=== PATIENT | male | born 1975 | race Caucasian/White ===

== ENCOUNTER 2018-03-20 09:37 | Outpatient (CLI) | payer OTHER, SELFPAY ==
[2018-03-20 11:27] LABS: Abs Immature Grans 0.02 k/cumm (0.0-0.09); Absolute Basophil Count 0.02 k/cumm (0.0-0.2); Absolute Eosinophil Count 0.24 k/cumm (0.0-0.7); Absolute Monocyte Count 0.65 k/cumm (0.11-0.7); Absolute Neutrophil Count 5.84 k/cumm (1.2-6.7); Basophils % 0.2; Eosinophils % 2.8; HCT 45.9 % (40.0-50.0); HGB 14.5 g/dL (13.5-17.5); Immature Grans % 0.2; Lymphocytes % 20.1; Mean Corp. HGB Concentration 31.6 g/dL (32.0-36.0); Mean Corpuscular Hemoglobin 29.3 pg (27.0-33.0); Mean Corpuscular Volume 92.7 fL (80-95); Mean Platelet Volume 12.1 fL (8.0-11.0); Monocytes % 7.7; Platelet Count 243 x1000/uL (130-400); RBC 4.95 m/cumm (4.50-6.00); RBC Distribution Width 12.9 % (11.8-14.1); White Blood Cell Count 8.47 k/cumm (4.4-10.8)
[2018-03-20 11:46] LABS: ALT 23 U/L (12-78); AST 13 U/L (15-37); Alkaline Phosphatase 53 U/L (46-116); BUN 12 mg/dL (7-18); Bilirubin, Total 0.3 mg/dL (0.2-1.0); CREATININE 0.94 mg/dL (0.70-1.30); Calcium 9.2 mg/dL (8.5-10.1); Chloride 101 mmol/L (98-107); Glucose 93 mg/dL (70-100); Potassium 4.8 mmol/L (3.5-5.1); Sodium 139 mmol/L (136-145); Total Protein 7.9 g/dL (6.4-8.2)
[2018-03-20 13:02] LABS: TSH 1.96 uIU/mL (0.358-3.74)
[2018-03-21 09:31] LABS: Thyroglobulin Antibody 27 U/mL (<61); Thyroperoxidase Antibody <28 U/mL (<61)
[2018-03-22 17:31] LABS: Testosterone, Free 11.4 ng/dL (4.46-17.1); Testosterone, Total 356 ng/dL (240-950)
== END 2018-03-20 09:57 ==
LOC: LBO 09:38 → LOS 10:17
PROVIDERS: PCP Nurse Practitioner Family; Visit Provider Nurse Practitioner Family
DX: E03.9 Hypothyroidism, unspecified (principal); R79.89 Other specified abnormal findings of blood chemistry
CPT/HCPCS: 36415; 80053; 80076; 84153; 84402; 84403; 85027; 86376; 84154; 84439; 84443; 85025

== ENCOUNTER 2018-08-21 02:02 | Outpatient (CLI) | payer OTHER, SELFPAY ==
[2018-08-21 10:39] LABS: HCT 49.2 % (40.0-50.0); HGB 15.8 g/dL (13.5-17.5); Mean Corp. HGB Concentration 32.1 g/dL (32.0-36.0); Mean Corpuscular Hemoglobin 29.6 pg (27.0-33.0); Mean Corpuscular Volume 92.1 fL (80-95); Mean Platelet Volume 12.2 fL (8.0-11.0); Platelet Count 232 x1000/uL (130-400); RBC 5.34 m/cumm (4.50-6.00); RBC Distribution Width 13.1 % (11.8-14.1); White Blood Cell Count 9.61 k/cumm (4.4-10.8)
[2018-08-21 11:29] LABS: ALT 23 U/L (12-78); AST 19 U/L (15-37); Albumin 3.6 g/dL (3.4-5.0); Alkaline Phosphatase 45 U/L (46-116); Anion Gap 9.6 mmol/L (3-11); BUN 19 mg/dL (7-18); Bilirubin, Total 0.6 mg/dL (0.2-1.0); CO2 26.4 mmol/L (21.0-32.0); CREATININE 1.09 mg/dL (0.70-1.30); Calcium 8.6 mg/dL (8.5-10.1); Chloride 103 mmol/L (98-107); Cholesterol 157 mg/dL (50-200); Folate 18.7 ng/mL (8.6-20.0); Glucose 96 mg/dL (70-100); HDL Cholesterol 35 mg/dL (40-60); LDL CHOLESTEROL 103 mg/dL (<100); Potassium 4.3 mmol/L (3.5-5.1); Sodium 139 mmol/L (136-145); TSH 2.57 uIU/mL (0.358-3.74); Total Protein 7.5 g/dL (6.4-8.2); Triglyceride 93 mg/dL (30-150); Vitamin B12 277 pg/mL (193-986)
[2018-08-21 11:48] LABS: FREE T4 0.91 ng/dL (0.76-1.46)
[2018-08-22 09:47] LABS: FSH <0.3 mIU/ml (1.4-18.1); LH <0.1 mIU/ml (2-9)
[2018-08-23 09:35] LABS: Homocysteine 11.5 umol/L (4.5-12.4)
== END 2018-08-21 02:22 ==
PROVIDERS: PCP Nurse Practitioner Family; Visit Provider Nurse Practitioner Family
DX: E03.9 Hypothyroidism, unspecified (principal); E29.1 Testicular hypofunction; Z13.220 Encounter for screening for lipoid disorders
CPT/HCPCS: 36415; 80053; 80061; 83090; 83721; 85027; 82607; 82746; 83001; 83002; 84439; 84443

== ENCOUNTER 2018-08-28 10:18 | Outpatient (CLI) | payer OTHER, SELFPAY ==
[2018-08-31 13:34] LABS: Testosterone, Free 15.1 ng/dL (4.46-17.1); Testosterone, Total 445 ng/dL (240-950)
== END 2018-08-28 10:38 ==
PROVIDERS: PCP Nurse Practitioner Family; Visit Provider Nurse Practitioner Family
DX: E55.9 Vitamin D deficiency, unspecified (principal); E29.1 Testicular hypofunction
CPT/HCPCS: 36415; 82306; 84402; 84403

== ENCOUNTER 2020-04-19 22:27 | Emergency (ER) | payer OTHER, SELFPAY ==
[2020-04-19 22:33] VITALS: BP 145/86; PULSE 88; RESP 16; TEMP 36.5; O2SAT 96
--- NOTE | 2020-04-19 22:45 | DI.RAD_ITS ---
EXAM: XR PORTABLE CHEST AP CLINICAL HISTORY: cough, wheeze TECHNIQUE: 2D digital imaging was performed. COMPARISON: No exams were available for comparison FINDINGS: MEDIASTINUM: Normal. HEART: Normal. PULMONARY VASCULATURE: Normal. LUNGS: No focal consolidating infiltrate. Minimal atelectasis in the lung bases. PLEURAL SPACE: No pleural effusion or pneumothorax. BONE:Within normal limits for the patient's age. OTHER FINDINGS:Normal. IMPRESSION: No acute pulmonary findings. DATA REPOSITORY: RADIATION DOSE DELIVERED:
--- NOTE | 2020-04-19 22:48 | ED.GENADUL_ITS ---
Discharge Plan Disposition Patient Disposition: HOME Condition: Improving Discharge Details Clinical Impression: Exacerbation of reactive airway disease Primary Care Provider: Joellen Wong ED Provider: Júnior Allen Home Meds and New Rx's Prescriptions: New prednisone 50 mg tablet 50 mg PO DAILY 5 Days Qty: 5 RF: 0 budesonide-formoterol [Symbicort] 80-4.5 mcg/actuation HFA aerosol inhaler 2 puff inhalation BID Qty: 10.2 RF: 0 Continued (DME) BD Regular Bevel [place] 21 gauge x 1 1/2 needle 1 ea Miscellaneous as directed Qty: 100 RF: 4 albuterol sulfate [ProAir HFA] 90 mcg/actuation HFA aerosol inhaler 1 - 2 puff Inhalation Q6H PRN PRN (Reason: shortness of breath or wheezing) Qty: 8.5 RF: 4 propranolol 40 mg tablet 40 mg PO ONCE PRN (Reason: situational anxiety) Qty: 30 RF: 0 triamcinolone acetonide 0.5 % ointment 1 applic Topical BID PRN (Reason: eczema) Qty: 80 RF: 4 testosterone cypionate 200 mg/mL oil 200 mg IM Q2Wks Qty: 6 RF: 0 Discharge Instructions Instructions: Reactive Airways Disease (ED) Additional Instructions: Return if you have a fever, cough, worsening shortness of breath or any other acute concerns. Please restart your Symbicort. Take prednisone as prescribed. Follow-up with regular doctor if not improving in 5 days time. Medical Decision Making <Júnior Allen MD - Last Filed: 04/19/20 22:53> 44-year-old male with a history of reactive airway disease. In early spring of this year he stopped taking his Symbicort. 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 This evening went out to check his game cameras and became abruptly wheezy and shortness of breath. He took albuterol x4 at home with some improvement, and presented to the ER for evaluation. He is afebrile and speaking in full sentences no acute distress. Oxygenating 96% on room air. Screening portable chest x-ray obtained. Patient given p.o. prednisone and DuoNeb updraft x2. Will place on a burst of prednisone. I will refill his Symbicort inhaler. <Viktor Alexandre MD - Last Filed: 04/19/20 23:26> Pt feels much better after nebs and is speaking in full sentences with clear lungs. Xray read as atelectasis vs infiltrate. Pt states this feels like his prior asthma exacerbation and denies fevers. Discussed with pt low likelihood of pneumonia based on symptoms and after discussion he would like to hold on antibiotics. He understands importance of pcp f/u if not improving within 5 days and return precautions given Imaging Data Radiologic Study: Attestation: I personally reviewed and interpreted this imaging study as follows: Imaging: X-Ray Radiologist's impression: IMPRESSION: Mild interstitial prominence. Mild left basilar atelectasis or infiltrate HPI <Júnior Allen MD - Last Filed: 04/19/20 22:53> General Mode of arrival: ambulatory . Date/Time Provider Initiated Documentation: 04/19/20 22:28 . Limitations to Documentation: no limitations . Information obtained by: patient . History of Present Illness 44 year old M presents to the emergency department with the chief complaint of Wheezing and asthma after walking in the [place] this evening, described as moderate and similar to prior episodes, Quality is described as dull, and is localized to the chest. Patient reports no radiation. Patient started experiencing this minute(s) and it has been constant. No relieving factors improve symptom(s), Other factors that worsen symptoms (Albuterol) . Patient notes denies chest pain, cough and fever/chills. Patient did receive the following treatments prior to arrival, other (Albuterol) Related Data Home Medications Medication Instructions Recorded Confirmed albuterol sulfate 90 mcg/actuation 1 - 2 puff INHALATION Q6H PRN PRN 05/08/19 04/19/20 aerosol inhaler #8.5 gm needle (disp) 21 G 21 gauge x 1 #100 each 05/08/19 12/04/19 1/2 propranolol 40 mg tablet 40 mg PO ONCE PRN #30 tab 07/01/19 04/19/20 triamcinolone acetonide 0.5 % 1 applic TOPICAL BID PRN #80 gm 07/01/19 04/19/20 topical ointment testosterone cypionate 200 mg/mL 200 mg IM Q2Wks #6 vial 03/25/20 04/19/20 intramuscular oil budesonide-formoterol [Symbicort] 2 puff INHALATION BID #10.2 g 04/19/20 prednisone 50 mg PO DAILY 5 Days #5 tab 04/19/20 Previous Rx's Medication Instructions Recorded albuterol sulfate 90 mcg/actuation 1 - 2 puff INHALATION Q6H PRN PRN 05/08/19 aerosol inhaler #8.5 gm needle (disp) 21 G 21 gauge x 1 #100 each 05/08/19 1/2 propranolol 40 mg tablet 40 mg PO ONCE PRN #30 tab 07/01/19 triamcinolone acetonide 0.5 % 1 applic TOPICAL BID PRN #80 gm 07/01/19 topical ointment testosterone cypionate 200 mg/mL 200 mg IM Q2Wks #6 vial 03/25/20 intramuscular oil budesonide-formoterol [Symbicort] 2 puff INHALATION BID #10.2 g 04/19/20 prednisone 50 mg PO DAILY 5 Days #5 tab 04/19/20 Allergies Allergy/AdvReac Type Severity Reaction Status Date / Time amoxicillin AdvReac Mild Unverified 05/08/19 08:50 codeine AdvReac Mild GI SYMPTOMS Unverified 05/08/19 08:50 General Stated Complaint: RespSymp INES: 3 Review of Systems <Júnior Allen MD - Last Filed: 04/19/20 22:53> Narrative: 6 systems reviewed and otherwise negative PFSH <Júnior Allen MD - Last Filed: 04/19/20 22:53> Medical History (Updated 04/19/20 @ 22:51 by Júnior Allen MD) Generalized anxiety disorder Hyperlipidemia Male hypogonadism Moderate persistent asthma JASON (obstructive sleep apnea) CPAP. Original PSG 08/23/15 Subclinical hypothyroidism Vitamin D deficiency Surgical History History of excision of pilonidal cyst (~2008) Status post vasectomy Family History Mother Basal cell carcinoma (BCC) in situ of skin Father Heart disease Hyperlipidemia Stroke Myocardial infarction Brother No problems noted. Son No problems noted. Daughter No problems noted. Maternal Grandfather Heart disease Maternal Grandmother No problems noted. Paternal Grandfather Alcohol abuse Type 2 diabetes mellitus Paternal Grandmother Stroke Lung cancer Social History Smoking/Tobacco Use Status: Former Tobacco Use Quit Date: 07/09/07 Pack-years: 13 Tobacco: How many years used: 16 Alcohol Intake: current Alcohol Intake frequency: holidays/special occasions only Drug use: Daily Substance use type: marijuana Do you feel safe at home: Yes Do you feel safe in your relationship?: Yes Exam <Júnior Allen MD - Last Filed: 04/19/20 22:53> Narrative Exam Narrative: GEN: awake, alert, oriented 3. Pleasant, well groomed, interactive. HEAD: Normocephalic, atraumatic ENT: Mucous membranes moist, oropharynx unremarkable, tympanic membranes clear bilaterally, external ear exam unremarkable EYES: PERRL, EOMI NECK: Full ROM, no OC, no menigismus CHEST/RESP: Nontender, bilateral end expiratory wheeze present CARDIOVASCULAR: RRR, no murmur, rub nghia. 2+ Rad pulse bilateral EXT: Full ROM, no edema, no rash Neuro: Grossly normal neurologic exam, conversant, interactive. Psych: Speech fluent, thoughts congruent, affect normal Course <Júnior Allen MD - Last Filed: 04/19/20 22:53> Vital Signs Vital signs: Vital Signs Temperature 36.5 C 04/19/20 22:33 Pulse 88 04/19/20 22:33 Respiratory Rate 16 04/19/20 22:33 Blood Pressure 145/86 H 04/19/20 22:33 Pulse Oximetry 96 04/19/20 22:33 Temperature 36.5 C 04/19/20 22:33 Temperature Source Temporal Artery Scan 04/19/20 22:33 Pulse 88 04/19/20 22:33 Respiratory Rate 16 04/19/20 22:33 Respiratory Effort 04/19/20 22:38 Blood Pressure 145/86 H 04/19/20 22:33 Blood Pressure Position Sitting 04/19/20 22:33 Pulse Oximetry 96 04/19/20 22:33 Pain Level 0 04/19/20 22:33 Sign Out <Júnior Allen MD - Last Filed: 04/19/20 22:53> Sign Out Data: Sign Out Comment: followup XR, recheck Last updated by Júnior Allen MD at 04/19/20 22:56
[2020-04-19] MEDS: Albuterol/Ipratropium 3 ML UPD VIAL UPD ×2 (22:54)
[2020-04-19] MEDS: predniSONE 20 MG TAB 60 MG PO (22:55)
[2020-04-19 23:27] VITALS: BP 131/85; PULSE 92; RESP 18; O2SAT 93
--- NOTE | 2020-04-22 16:03 | DI.VRAD_ITS ---
PROCEDURE INFORMATION: Exam: XR Chest, 1 View Exam date and time: 04/19/2020 10:53 PM Age: 44 years old Clinical indication: Patient HX: Cough, wheeze TECHNIQUE: Imaging protocol: XR of the chest Views: 1 view. COMPARISON: No relevant prior studies available. FINDINGS: Lungs: Mild left basilar atelectasis or infiltrate. There is prominence of the interstitial markings. Pleural space: No pleural effusion. No pneumothorax. Heart/Mediastinum: Unremarkable. No cardiomegaly. Bones/joints: No acute osseous abnormality. IMPRESSION: Mild interstitial prominence. Mild left basilar atelectasis or infiltrate. Dictated and Authenticated by: Anthony Dawson MD. Ordering:LETICIA Callejas MD
== END 2020-04-19 23:35 | disposition home or self-care (01) ==
LOC: ER 23:36
PROVIDERS: Emergency Provider Emergency Medicine; PCP Nurse Practitioner Family
DX: J45.41 Moderate persistent asthma with (acute) exacerbation (principal); Z87.891 Personal history of nicotine dependence
CPT/HCPCS: 94640; 99284; 71045; J7512; J7620

== ENCOUNTER 2020-10-25 03:15 | Outpatient (CLI) | payer OTHER, SELFPAY ==
[2020-10-25 12:52] LABS: HCT 51.7 % (40.0-50.0); HGB 16.5 g/dL (13.5-17.5); MCHC 31.9 % (32.0-36.0); MPV 10.7 fL (8.0-11.0); Platelet Count 246 10^3/uL (130-400); RBC 5.33 10^6/uL (4.36-5.78); RDW 12.1 % (11.8-14.1); RDW-SD 43.8 fL; WBC 8.32 10^3/uL (4.4-10.8)
[2020-10-25 12:58] LABS: ALT 35 U/L (16-63); AST 18 U/L (15-37); Alkaline Phosphatase 41 U/L (46-116); Anion Gap 1.4 mmol/L (3-11); BUN 18 mg/dL (7-18); Bilirubin, Total 0.5 mg/dL (0.2-1.0); CO2 34.6 mmol/L (21.0-32.0); CREATININE 1.1 mg/dL (0.70-1.30); Calcium 9.4 mg/dL (8.5-10.1); Chloride 103 mmol/L (98-107); Glucose 96 mg/dL (74-106); Potassium 4.7 mmol/L (3.5-5.1); Sodium 139 mmol/L (136-145)
[2020-10-25 13:21] LABS: Vitamin D 25 Total 24.4 ng/mL (30-100)
[2020-10-25 17:04] LABS: PSA, Screening 2.5 ng/mL (0.0-2.5)
[2020-10-27 17:00] LABS: Testosterone, Free 2.34 ng/dL (4.26-16.4); Testosterone, Total 73 ng/dL (240-950)
== END 2020-10-25 03:16 | disposition home or self-care (01) ==
LOC: LOS 03:15
PROVIDERS: PCP Nurse Practitioner Family; Visit Provider Nurse Practitioner Family
DX: E55.9 Vitamin D deficiency, unspecified (principal); E29.1 Testicular hypofunction; Z12.5 Encounter for screening for malignant neoplasm of prostate
CPT/HCPCS: 36415; 80053; 82306; 84153; 84402; 84403; 85027

== ENCOUNTER 2020-11-19 01:37 | Outpatient (CLI) | payer OTHER, SELFPAY ==
[2020-11-19 12:50] LABS: HCT 47.3 % (40.0-50.0); HGB 15.6 g/dL (13.5-17.5); MCH 31.3 pg (27.0-33.0); MPV 11.4 fL (8.0-11.0); Platelet Count 253 10^3/uL (130-400); RBC 4.98 10^6/uL (4.36-5.78); RDW 12.3 % (11.8-14.1); WBC 10.35 10^3/uL (4.4-10.8)
[2020-11-19 13:19] LABS: Calculated LDL 76 mg/dL (<100); Cholesterol 150 mg/dL (<200); HDL Cholesterol 66 mg/dL (40-60); TSH (W/Ref FT4) 1.06 uIU/mL (0.36-3.74); Triglyceride 43 mg/dL (<150)
[2020-11-19 13:38] LABS: Hemoglobin A1C 5.4 % (<5.7)
[2020-11-19 16:58] LABS: PSA, Screening 1.4 ng/mL (0.0-2.5)
[2020-11-23 11:57] LABS: Testosterone, Free 46.1 ng/dL (4.26-16.4); Testosterone, Total 824 ng/dL (240-950)
== END 2020-11-19 01:38 | disposition home or self-care (01) ==
LOC: LOS 01:37
PROVIDERS: PCP Nurse Practitioner Family; Visit Provider Nurse Practitioner Family
DX: E78.5 Hyperlipidemia, unspecified (principal); E29.1 Testicular hypofunction; Z12.5 Encounter for screening for malignant neoplasm of prostate
CPT/HCPCS: 36415; 80061; 84153; 84402; 84403; 85027; 83036; 84443

== ENCOUNTER 2022-06-07 03:38 | Outpatient (CLI) | payer BC, SELFPAY ==
[2022-06-07 12:15] LABS: Abs Immature Grans 0.02 10^3/uL (0.0-0.06); Absolute Basophil Count 0.06 10^3/uL (0.0-0.2); Absolute Eosinophil Count 0.19 10^3/uL (0.0-0.7); Absolute Lymphocyte Count 1.87 10^3/uL (1.2-3.4); Absolute Monocyte Count 0.75 10^3/uL (0.1-0.8); Absolute Neutrophil Count 5.56 10^3/uL (1.2-6.7); Basophils % 0.7; Eosinophils % 2.2; HCT 48.8 % (40.0-50.0); HGB 15.9 g/dL (13.5-17.5); Immature Grans % 0.2; Lymphocytes % 22.1; MCH 31.4 pg (27.0-33.0); MCHC 32.6 % (32.0-36.0); MCV 96 fL (80-95); MPV 11.1 fL (8.0-11.0); Monocytes % 8.9; Neutrophils % 65.9; Platelet Count 267 10^3/uL (130-400); RBC 5.06 10^6/uL (4.36-5.78); RDW 12.5 % (11.8-14.1); RDW-SD 44.4 fL; WBC 8.45 10^3/uL (4.4-10.8)
[2022-06-07 12:38] LABS: ALT 34 U/L (16-63); AST 16 U/L (15-37); Albumin 3.7 g/dL (3.4-5.0); Alkaline Phosphatase 47 U/L (46-116); Anion Gap 5.8 mmol/L (3-11); BUN 15 mg/dL (7-18); Bilirubin, Total 0.4 mg/dL (0.2-1.0); CO2 31.2 mmol/L (21.0-32.0); CREATININE 1.2 mg/dL (0.70-1.30); Calcium 9.1 mg/dL (8.5-10.1); Chloride 102 mmol/L (98-107); Estimated GFR 75.06 (mL/min/1.73m2); Glucose 90 mg/dL (74-106); Potassium 4.1 mmol/L (3.5-5.1); Sodium 139 mmol/L (136-145)
[2022-06-07 12:49] LABS: Total Protein 7.8 g/dL (6.4-8.2)
[2022-06-09 10:54] LABS: Lipoprotein (a) 70 nmol/L (<75)
[2022-06-09 14:46] LABS: Testosterone, Total 330 ng/dL (240-950)
== END 2022-06-07 03:39 | disposition home or self-care (01) ==
LOC: LOS 03:38
PROVIDERS: PCP Nurse Practitioner Family; Visit Provider Nurse Practitioner Family
DX: E29.1 Testicular hypofunction (principal); Z82.49 Family history of ischemic heart disease and other diseases of the circulatory system; F41.8 Other specified anxiety disorders; J45.40 Moderate persistent asthma, uncomplicated
CPT/HCPCS: 36415; 80053; 83695; 84403; 85025

== ENCOUNTER 2023-01-02 14:46 | Outpatient (REF) | payer OTHER, SELFPAY ==
--- NOTE | 2023-01-02 11:15 | SKI_PTH ---
PATIENT: Bobby Washington LOC: [facility] U#:[id number] AGE/SX: 47/M ROOM: RE01/02/[address]: Kobi Marques DNP : 1975 BED: DIS: 01/02/2023 SPEC #: [id number] RECD: 01/03/23 12:27 STATUS: TOBY HATCH #: [id number] KIRSTIE: 01/02/23 11:[address]: Kobi Lowery DEPT: Surgical Specimen RECD BY: Mechelle Herman ENTERED: 01/03/23 12:28 SP TYPE: JORGE LARA DR: EDDIE Sprague Tissues: 1 - SKIN BIOPSY(SHAVE/PUNCH) Procedures: SKIN LEVEL 4 SPECIAL STAIN 1 Comments: [id number]
== END 2023-01-02 14:47 | disposition home or self-care (01) ==
LOC: LBN 14:46
PROVIDERS: PCP Nurse Practitioner Family; Visit Provider Nurse Practitioner Family
DX: L30.8 Other specified dermatitis (principal)
CPT/HCPCS: 88305; 88312

== ENCOUNTER 2023-05-18 09:03 | Outpatient (CLI) | payer OTHER, SELFPAY ==
[2023-05-18 12:13] LABS: HCT 49.4 % (40.0-50.0); HGB 16.2 g/dL (13.5-17.5); MCH 31.4 pg (27.0-33.0); MCHC 32.8 % (32.0-36.0); MCV 96 fL (80-95); MPV 11.6 fL (8.0-11.0); Platelet Count 297 10^3/uL (130-400); RBC 5.16 10^6/uL (4.36-5.78); RDW 12.4 % (11.8-14.1); RDW-SD 44.1 fL; WBC 6.65 10^3/uL (4.4-10.8)
[2023-05-18 12:26] LABS: ALT 30 U/L (16-63); AST 17 U/L (15-37); Albumin 4.1 g/dL (3.4-5.0); Alkaline Phosphatase 40 U/L (46-116); Anion Gap 7.4 mmol/L (3-11); BUN 20 mg/dL (7-18); Bilirubin, Total 0.5 mg/dL (0.2-1.0); CO2 29.6 mmol/L (21.0-32.0); CREATININE 1.1 mg/dL (0.70-1.30); Calcium 9.6 mg/dL (8.5-10.1); Chloride 102 mmol/L (98-107); Estimated GFR 82.81 (mL/min/1.73m2); Glucose 92 mg/dL (74-106); Potassium 4.3 mmol/L (3.5-5.1); Sodium 139 mmol/L (136-145); Total Protein 8.2 g/dL (6.4-8.2)
[2023-05-22 12:43] LABS: Testosterone, Total 544 ng/dL (240-950)
== END 2023-05-18 09:04 | disposition home or self-care (01) ==
LOC: LOS 09:03
PROVIDERS: PCP Nurse Practitioner Family; Referring Provider Nurse Practitioner Family; Visit Provider Nurse Practitioner Family
DX: Z00.00 Encounter for general adult medical examination without abnormal findings (principal)
CPT/HCPCS: 36415; 80053; 84403; 85027

== ENCOUNTER 2023-12-17 06:17 | Day surgery (SDC) | payer OTHER, SELFPAY ==
--- NOTE | 2023-12-16 10:44 | W.PM.DSUDISC ---
Date of service: 12/17/23 Time of Service: 07:52 Discharge Plan Disposition Patient Disposition: Home Condition: Good Discharge Details Reason For Visit: screening colonoscopy Attending Provider: Junito Toledo Primary Care Provider: Joellen Wong Home Meds and New Rx's Prescriptions: Continued nicotine (polacrilex) 4 mg gum 4 mg buccal Q2H MDD 24 PRN (Reason: nicotine cravings) Qty: 100 4RF Rx Instructions: Weeks 1-6: 1 every 1-2hrs Weeks 7-9: 1 every 2-4hrs Weeks 10-12: 1 every 4-8hrs betamethasone dipropionate 0.05 % cream 1 applic topical BID PRN (Reason: rash) Qty: 45 3RF Skyrizi 150 mg/mL syringe 150 mg subcut Q12W albuterol sulfate [ProAir HFA] 90 mcg/actuation HFA aerosol inhaler 1 - 2 puff Inhalation Q6H PRN PRN (Reason: shortness of breath or wheezing) Qty: 8.5 4RF (DME) BD Regular Bevel [place] 21 gauge x 1 1/2 needle 1 ea Miscellaneous as directed Qty: 200 4RF Rx Instructions: Use for testosterone injection once a week (DME) syringe with needle [BD Luer-Bell Syringe] 3 mL 21 gauge x 1 1/2 syringe See Rx Instructions .Route Qty: 100 3RF Rx Instructions: As directed, IM injection of testosterone once a week budesonide-formoterol 80-4.5 mcg/actuation HFA aerosol inhaler 2 puff inhalation BID Qty: 10.2 3RF testosterone cypionate 100 mg/mL oil 75 mg IM QWEEK Qty: 10 0RF Discontinued bisacodyl [Dulcolax (bisacodyl)] 5 mg tablet,delayed release (DR/EC) 5 mg PO ONCE Qty: 4 0RF Rx Instructions: Take per colonoscopy instructions provided by ordering providers office polyethylene glycol 3350 17 gram/dose powder 17 g PO ONCE Qty: 238 0RF Rx Instructions: Take per colonoscopy instructions provided by ordering providers office Discharge Instructions Instructions: Diverticulosis (GEN), Colorectal Polyps (GEN), Diverticulosis Diet (GEN) Additional Instructions: Santo, we were able to complete your colonoscopy today without any difficulty. Your prep was excellent and I could see everything fine. I did find 1 polyp, which I removed today. This will be sent off for testing, and once I know the nature of this polyp, I will be in touch with recommendations regarding the timing of your next colonoscopy. Incidentally, you also have some diverticulosis. Diverticula are little weak spots in the muscular part of the colon wall. They can get infected and inflamed. When that happens, patients typically have quite a bit of pain that usually on the left lower part of their abdomen. This is often times accompanied with fevers and not feeling well. Patients are typically treated with antibiotics during those occasions, which we called diverticulitis. I have attached a little bit of information here about colorectal polyps, as well as typical approaches to diverticular management. If you have any questions, please do not hesitate to ask at any point. 1. If tolerated, consume a soft, low fiber diet for 1-2 days. 2[address] Do not drive, drink alcohol, operate machinery, make critical decisions, or do activities that require coordination or balance for 24 hours. 3. Because air was put into your colon during the procedure, expelling air from your rectum (passing gas or farting) is normal. 4. You may not have a bowel movement for 1-3 days because of the colonoscopy prep. This is normal. 5. Go directly to the emergency room if you notice any of the following: Develop chills (warm to touch), or if you have a thermometer and your temperature is above 101 Difficulty breathing or difficultly swallowing Persistent vomiting Severe abdominal pain, other than gas cramps Severe chest pain Black, tarry stools Any bleeding ? exceeding one tablespoon 6. Call your physician if the site where your intravenous was started becomes red, swollen, painful, and warm to touch. 7. Your physician has reviewed your pre-procedure medications. Please continue to take those medications as previously ordered. You will be given specific information/education regarding any changes to your medications before leaving. Activity:: Activity as Tolerated Diet:: As Tolerated Discharge Orders Discharge Orders: Discharge Order (Routine); Ordered 12/16/23 Ordered By: Junito Toledo DS: Diagnosis Discharge Diagnosis (1) Encounter for screening colonoscopy: Status: Acute Asessment and Plan: Follow-up on polyp results
--- NOTE | 2023-12-16 11:02 | W.COLOREPORT ---
Date of service: 12/17/23 Time of Service: 07:54 Colonoscopy Report Date of procedure: 12/17/23 Pre-op diagnosis general: screening colonoscopy Post-op diagnosis procedure note: other (Rectal polyp, diverticulosis) Procedure: colonoscopy with polypectomy Surgeon: Junito Toledo Anesthesia Type: General:No Airway Estimated blood loss (mL): 5 Pathology: other (0.5 cm pedunculated rectal polyp) Complications: None Disposition: same day Indications: Bobby is a47 years old. He needs a s screening colonoscopy Prep: Miralax/Dulcolax Procedure Start Time: 07:32 Procedure End Time: 07:47 Retraction Time: 8 Findings: 0.5 cm pedunculated rectal polyp; sigmoid diverticulosis Procedure Description: After the induction of anesthesia, and with the patient in left lateral decubitus position, I began by performing an external anorectal exam.? Perineum and skin were normal, as was the anal verge.? There was no evidence of external hemorrhoids.? Next, I performed a digital rectal exam.? I did not appreciate any abnormal findings.? Next, I advanced a colonoscope into the rectal vault.? I performed retroflexion.? This was normal.? In the midportion of the rectum was a 0.5 cm pedunculated polyp. This was removed with cold forceps without any difficulty. There was minimal bleeding. Using insufflation, I then advanced the colonoscope beyond the rectal folds and into the sigmoid colon before advancing towards the cecum.? There was some diverticulosis, mostly limited to the sigmoid colon.? The scope was noted to be in the cecum by identification of the ileocecal valve and appendiceal orifice.? I then began withdrawing the colonoscope using repeated irrigation as necessary for full evaluation of the colonic mucosa. ?Once the scope was withdrawn to the level of the rectum, great care was taken to examine portions of the rectal folds.? Finally, the scope was withdrawn and the patient was brought to the same-day surgery recovery unit as the anesthetic wore off. ?The findings and instructions were shared with the patient prior to discharge. [place] Bowel Prep [place] Bowel Prep Right Colon: 3 Left Colon: 3 Transverse Colon: 3 Total Score: 9
[2023-12-17 06:32] VITALS: BP 118/80; PULSE 66; RESP 16; TEMP 36.5; O2SAT 97
[2023-12-17] MEDS: Lactated Ringers 1,000 ML 80 ML IV (06:40)
--- NOTE | 2023-12-17 06:56 | W.ANESPRE ---
General Info Date of Service Date Performed: 12/17/23 Height: 5 ft 9 in Weight: 91.2 kg Body Mass Index (BMI): 29.7 Surgical Procedure: Operation Date: 12/17/23 07:35 Proposed Procedure Side Surgeon p Colonoscopy Junito Toledo MD Actual Procedure Side Surgeon p Colonoscopy Not Applicable Junito Toledo MD Pre-Op Diagnosis Post-Op Diagnosis Positive colorectal cancer screening using Cologuard test Meds Allergies and Home Medications Allergies Allergy/AdvReac Type Severity Reaction Status Date / Time amoxicillin AdvReac Mild Nausea Verified 12/17/23 06:30 codeine AdvReac Mild GI SYMPTOMS Verified 12/17/23 06:30 Home Medication Medication Instructions Recorded nicotine (polacrilex) 4 mg gum 4 mg buccal Q2H PRN nicotine 05/12/21 cravings #100 ea albuterol sulfate 90 mcg/actuation 1 - 2 puff inhalation Q6H PRN PRN 07/27/22 aerosol inhaler (ProAir HFA) shortness of breath or wheezing #8.5 grams betamethasone dipropionate 0.05 % 1 applic topical BID PRN rash #45 02/21/23 topical cream grams needle (disp) 21 G 21 gauge x 1 #200 ea 05/30/23 1/2 (BD Regular Bevel [place]) syringe with needle 3 mL 21 gauge #100 ea 07/23/23 x 1 1/2 (BD Luer-Bell Syringe) budesonide-formoterol HFA 80 2 puff inhalation BID #10.2 grams 08/01/23 mcg-4.5 mcg/actuation aerosol inhaler testosterone cypionate 100 mg/mL 75 mg (0.75 mL) IM QWEEK #10 vials 10/05/23 intramuscular oil risankizumab-rzaa 150 mg/mL 150 mg subcut Q12W 10/11/23 subcutaneous syringe (Skyrizi) Current Visit Medications: Current Medications Generic Name Dose Route Start Last Admin Trade Name Freq PRN Reason Stop Dose Admin Hyoscyamine Sulfate 0.125 mg 12/16/23 11:03 Hyoscyamine 0.125 Mg Sl/Oral/Chew SL 01/15/24 11:02 DIRECTED PRN Ringer's Solution 1,000 mls @ 80 mls/hr 12/17/23 06:00 12/17/23 06:40 IV 12/17/23 23:59 80 mls/hr INFUSION MARII Administration IV Miscellaneous Supplies 1 each 12/17/23 06:00 Iv Access IV 12/17/23 23:59 DIRECTED MARII Ondansetron HCl 4 mg 12/16/23 11:03 Ondansetron 4 Mg/2 Ml Vial IVP 01/15/24 11:02 Q4H PRN PRN Nausea / Vomiting Sodium Chloride 0 ml 12/17/23 06:00 Normal Saline Flush 10 Ml Syr IV 12/17/23 23:59 PRN PRN Sodium Chloride 0 ml 12/17/23 06:00 Normal Saline 10 Ml Vial IJ 12/17/23 23:59 DIRECTED PRN Sterile Water 0 ml 12/17/23 06:00 Water,Injection,Sterile 10 Ml Vial IJ 12/17/23 23:59 DIRECTED PRN PFSH Active Problems Active Problems: Problem Status Onset Code Encounter for screening colonoscopy Z12.11 Moderate persistent asthma J45.40 JASON (obstructive sleep apnea) G47.33 Vitamin D deficiency E55.9 Generalized anxiety disorder F41.1 Psoriasis L40.9 Seasonal allergies J30.2 Positive colorectal cancer screening using Cologuard test R19.5 Medical History Medical History Hyperlipidemia Subclinical hypothyroidism Surgical History Surgical History S/P nasal septoplasty (04/2022) History of excision of pilonidal cyst (~2008) Status post vasectomy Tobacco Smoking/Tobacco Use Status: Former Tobacco Use Passive smoking exposure: No Second hand exposure: Yes Alcohol Alcohol Intake: current Alcohol intake frequency: holidays/special occasions only Substance Use Substance use: Never Substance use type: does not use Vital Signs and Lab Results Vital Signs Most Recent Vital Signs in EMR: Most Recent Vital Signs Temp Pulse Resp BP Pulse Ox 36.5 C 66 16 118/80 97 12/17/23 06:32 12/17/23 06:32 12/17/23 06:32 12/17/23 06:32 12/17/23 06:32 Lab Results Blood Type / Crossmatch: No Data to Display Complete Blood Count: No Data to Display Complete Metabolic Panel: No Data to Display Liver Function Panel: No Data to Display Coagulation Panel: No Data to Display Cardiac Panel: No Data to Display Arterial Blood Gas: No Data to Display Venous Blood Gas: No Data to Display Pancreas Panel: No Data to Display Thyroid Panel: No Data to Display Infectious Disease: No Data to Display Blood Cultures: No Data to Display Toxicology Panel: No Data to Display Anesthesia Assessment and Plan Anesthesia History Personal History: No History of Anesthesia Complications Family History: No Family History of Anesthesia Complications Exercise Tolerance Exercise Tolerance: Metabolic Equivalents>4 Pertinent Negatives Pertinent Negatives: No Symptoms of GERD, No Major Cardiovascular Symptoms or Complaints, No Major Pulmonary Symptoms or Complaints and No History of CVA/TIA Cardiac & Pulmonary Exam Cardiac Exam: Normal S1/S2 Heart Sounds Pulmonary Exam: Clear Bilateral Breath Sounds Implantable Cardiac Device Does patient have a Pacemaker or an ICD?: No Airway Exam Known Difficult Airway: No Mallampati Class: 1 Mouth Opening: Normal (> 3cm) Thyromental Distance: Greater than 3 cm Neck Range of Motion: Full ROM Neck Circumference: Normal Teeth Condition: Normal Dentition ASA Classification ASA Score: ASA 2 Emergency Case?: No NPO Status NPO Status: NPO Clears >2 hours, Solids >8 hours Anesthesia Plan Resuscitation Status: Full Code Anesthesia Technique: General Anesthesia Airway Planned: Natural Airway Monitors Used: Standard Monitors
[2023-12-17 07:22] VITALS: BMI 29.7
--- NOTE | 2023-12-17 07:34 | BOWEL_PTH ---
PATIENT: Bobby Washington LOC: [facility] U#:[id number] AGE/SX: 47/M ROOM: RE12/17/[address]: Junito Toledo MD : 1975 BED: DIS: 12/17/2023 SPEC #: [id number] RECD: 12/17/23 12:47 STATUS: TOBY REQ #: [id number] KIRSTIE: 12/17/23 07:[address]: Junito Toledo DEPT: Surgical Specimen RECD BY: Mechelle Herman ENTERED: 12/17/23 12:47 SP TYPE: Bowel OTHR DR: EDDIE Sprague Tissues: 1 - BIOPSY BOWEL Procedures: GROSS AND MICRO LEVEL 4 Comments: [id number]
[2023-12-17 07:51] VITALS: BP 104/57; PULSE 59; RESP 16; TEMP 36.6; O2SAT 98
[2023-12-17 08:25] VITALS: BP 122/76; PULSE 58; RESP 16; TEMP 36.4; O2SAT 99
--- NOTE | 2023-12-17 09:01 | W.ANESPOSTOP ---
Postoperative Evaluation Date, Time and Location Date Performed: 12/17/23 Time Performed: 08:22 Patient Location: Day Surgery Unit Vital Signs Most Recent Imported Vital Signs: Most Recent Vital Signs Temp Pulse Resp BP Pulse Ox 36.4 C L 58 L 16 122/76 99 12/17/23 08:25 12/17/23 08:25 12/17/23 08:25 12/17/23 08:25 12/17/23 08:25 Pain Score Most Recent Pain Score: Most Recent Pain Score Pain Level 0 12/17/23 08:25 Assessment Mental Status: Awake (Alert & Oriented to Patient Baseline) Airway and Respiratory Function: Patent airway with normal (patient baseline) respiratory exam Cardiovascular Function: Hemodynamically Stable Hydration Status: Adequately Hydrated Nausea & Vomiting: No Nausea or Vomiting Pain: Pt. Denies Any Pain Peripheral Nerve Block: Patient did not receive a nerve block
== END 2023-12-17 08:45 | disposition home or self-care (01) ==
PROVIDERS: PCP Nurse Practitioner Family; Visit Provider Surgery
PROC: 0DJD8ZZ Inspection of Lower Intestinal Tract, Via Natural or Artificial Opening Endoscopic (ICD-10-PCS; CPT 45378; principal; 2023-12-17 07:30)
DX: Z12.11 Encounter for screening for malignant neoplasm of colon (principal); K63.5 Polyp of colon; K57.30 Diverticulosis of large intestine without perforation or abscess without bleeding; R19.5 Other fecal abnormalities
CPT/HCPCS: 45380; 88305; J2704

== ENCOUNTER 2024-06-30 02:37 | Outpatient (CLI) | payer OTHER, SELFPAY ==
[2024-06-30 14:27] LABS: Abs Immature Grans 0.02 10^3/uL (0.0-0.06); Absolute Basophil Count 0.03 10^3/uL (0.0-0.2); Absolute Eosinophil Count 0.03 10^3/uL (0.0-0.7); Absolute Lymphocyte Count 1.29 10^3/uL (1.2-3.4); Absolute Monocyte Count 0.69 10^3/uL (0.1-0.8); Absolute Neutrophil Count 6.47 10^3/uL (1.2-6.7); Basophils % 0.4 %; Eosinophils % 0.4 %; HCT 48.4 % (40.0-50.0); HGB 16.3 g/dL (13.5-17.5); Immature Grans % 0.2 %; Lymphocytes % 15.1 %; MCHC 33.7 % (32.0-36.0); MCV 95 fL (80-95); MPV 11.1 fL (8.0-11.0); Monocytes % 8.1 %; Neutrophils % 75.8 %; Platelet Count 224 10^3/uL (130-400); RDW 12.1 % (11.8-14.1); RDW-SD 42.3 fL; WBC 8.53 10^3/uL (4.4-10.8)
[2024-06-30 15:17] LABS: ALT 28 U/L (16-63); AST 22 U/L (15-37); Albumin 3.9 g/dL (3.4-5.0); Alkaline Phosphatase 40 U/L (46-116); Anion Gap 7.4 mmol/L (3-11); BUN 15 mg/dL (7-18); Bilirubin, Total 0.89 mg/dL (0.2-1.0); CO2 30.6 mmol/L (21.0-32.0); CREATININE 1.2 mg/dL (0.70-1.30); Calcium 9.1 mg/dL (8.5-10.1); Calculated LDL 105 mg/dL (<100); Chloride 103 mmol/L (98-107); Cholesterol 190 mg/dL (<200); Estimated GFR 74.13 (mL/min/1.73m2); Glucose 99 mg/dL (74-106); HDL Cholesterol 77 mg/dL (40-60); Potassium 4.3 mmol/L (3.5-5.1); Sodium 141 mmol/L (136-145); Triglyceride 42 mg/dL (<150)
[2024-07-03 11:32] LABS: TB Interpretation Negative (Negative); TB1 Ag minus Nil 0.02 IU/mL; TB2 Ag minus Nil 0.02 IU/mL
[2024-07-04 16:27] LABS: Testosterone, Total 621 ng/dL (240-950)
== END 2024-06-30 02:38 | disposition home or self-care (01) ==
PROVIDERS: Student in an Organized Health Care Education/Training Program; PCP Nurse Practitioner Family; Visit Provider Nurse Practitioner Family
DX: E29.1 Testicular hypofunction (principal); E55.9 Vitamin D deficiency, unspecified; L40.9 Psoriasis, unspecified; Z79.899 Other long term (current) drug therapy
CPT/HCPCS: 36415; 80053; 80061; 82306; 84403; 85025; 86480